=== PATIENT | male | born 1990 | race Caucasian/White ===

== ENCOUNTER 2019-02-22 03:04 | Emergency (ER) | payer BC, OTHER ==
[2019-02-22] MEDS ORDERED: diphenhydrAMINE 25 MG Cap PO ONE (03:30)
[2019-02-22] MEDS ORDERED: methylPREDNISolone Sodium Succinate 125 MG/2 ML SDV IM ONE (03:30)
--- NOTE | 2019-02-22 03:36 | EDM.PDOC ---
ED HPI GENERAL MEDICAL PROBLEM - General Chief Complaint: Bite:Animal, Insect Stated Complaint: bug bite Time Seen by Provider: 02/22/19 03:25 Source of Information: Reports: Patient History Limitations: Reports: No Limitations - History of Present Illness INITIAL COMMENTS - FREE TEXT/NARRATIVE: Patient noticed some irritation and itching of left hand starting around 10pm as he prepared to go to work at [employer]. Thought initially maybe mosquito bite- related. Now wonders if maybe spider bite. Points to several small areas of mild pinpoint erythema that are more pruritic where he feels he may have been bit. 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 He then noticed that the left hand started to swell and itch more. Currently is less able to make a tight fist due to general mild puffiness of the hand, and cannot put welding gloves back on. No systemic symptoms like shortness of breath, throat swelling or wheezing. Feels well otherwise. Reacts strongly to horse flies too whose bites cause swelling. Did not feel a bite at the time this all started and this is why he wonders if it was a spider. Left Hand Pain Score (Numeric/FACES): 8 - Related Data Allergies Allergy/AdvReac Type Severity Reaction Status Date / Time Penicillins Allergy Hives Verified 06/27/14 16:52 Past Medical History - Past Health History Medical/Surgical History: Denies Medical/Surgical History Social & Family History - Tobacco Use Years of Tobacco use: 12 Packs/Tins Daily: 0.5 - Caffeine Use Caffeine Use: Reports: Soda - Recreational Drug Use Recreational Drug Use: No - Living Situation & Occupation Living situation: Reports: with Significant Other Occupation: Employed ED ROS GENERAL - Review of Systems Review Of Systems: See Below Constitutional: Reports: No Symptoms HEENT: Reports: No Symptoms. Denies: Rhinitis, Throat Swelling, Vision Change Respiratory: Reports: No Symptoms. Denies: Shortness of Breath, Wheezing Cardiovascular: Reports: No Symptoms GI/Abdominal: Reports: No Symptoms : Reports: No Symptoms Musculoskeletal: Reports: Hand Pain (left hand feels a bit achy), Muscle Stiffness (left hand). Denies: Joint Swelling Skin: Reports: Other (small red areas on left hand, wrist) Neurological: Reports: No Symptoms Psychiatric: Reports: No Symptoms Hematologic/Lymphatic: Reports: No Symptoms ED EXAM, ANIMAL BITE - Physical Exam Exam: See Below Exam Limited By: No Limitations General Appearance: Alert, WD/WN, No Apparent Distress Eye Exam: Bilateral Eye: EOMI, Normal Inspection Nose: No: Nasal Deformity, Nasal Swelling Throat/Mouth: Normal Lips, Normal Voice, No Airway Compromise Head: Atraumatic, Normocephalic Neck: Supple, Non-Tender, Full Range of Motion Respiratory/Chest: No Respiratory Distress, Lungs Clear Cardiovascular: Regular Rate, Rhythm Peripheral Pulses: 2+: Radial (L), Radial (R) GI/Abdominal: Soft (Male) Exam: Deferred Rectal (Males) Exam: Deferred Back Exam: No: Muscle Spasm Extremities: Normal Capillary Refill, Other (Left hand is mildly diffusely swollen. Swelling involves fingers and extends approx 5 inches proximally from wrist. No skin color change other than several scattered very small areas of redness where patient feels he could have been bit that area that are pruritic. Able to flex and extend fingers but cannot make tight fist due to the feeling of stiffness. ). No: Increased Warmth, Mottled, Pallor Neurological: Alert, Oriented, Normal Cognition, Normal Gait Psychiatric: Normal Affect, Normal Mood Skin Exam: Warm/Dry Course - Vital Signs Last Recorded V/S: Last Vital Signs Temp 36.5 C 02/22/19 03:11 Pulse 97 02/22/19 03:11 Resp 14 02/22/19 03:11 BP 142/67 H 02/22/19 03:11 Pulse Ox 100 02/22/19 03:11 - Orders/Labs/Meds Orders: Active Orders 24 hr Category Date Time Status diphenhydrAMINE [Benadryl] Med 02/22/19 03:30 Once 50 mg PO ONETIME ONE methylPREDNISolone Sod Succ [Solu-MEDROL] Med 02/22/19 03:30 Once 125 mg IM ONETIME ONE - Re-Assessments/Exams Free Text/Narrative Re-Assessment/Exam: 02/22/19 03:39 Suspect reaction to insect bite given pruritic complaint, history of reacting to bugs in past, and exam. Plan at this time is to give Solumedrol and Benadryl. Patient will be sent home. To observe for changes. If no improvement is noted from the meds, or if he has worsening swelling, he is to follow up at the ER or the clinic later today. Departure - Departure Time of Disposition: 03:43 Disposition: Home, Self-Care 01 Condition: Good Clinical Impression: Localized swelling on left hand Insect bite Qualifiers: Encounter type: initial encounter Site of insect bite: hand Laterality: left Qualified Code(s): S60.562A - Insect bite (nonvenomous) of left hand, initial encounter; W57.XXXA - Bitten or stung by nonvenomous insect and other nonvenomous arthropods, initial encounter - Discharge Information Instructions: Insect Bite, Adult, [id number] Referrals: Jesus Manuel Nelson PA [Primary Care Provider] - Additional Instructions: Continue Benadryl 1-2 tabs every 6 hours to help with itching/swelling. If no improvement is noted by this afternoon, or if you have worsening symptoms, return for recheck at ER or clinic later today. If things improve, OK to return to work next shift. - My Orders Last 24 Hours: My Active Orders 02/22/19 03:30 diphenhydrAMINE [Benadryl] 50 mg PO ONETIME ONE methylPREDNISolone Sod Succ [Solu-MEDROL] 125 mg IM ONETIME ONE - Assessment/Plan Last 24 Hours: My Active Orders 02/22/19 03:30 diphenhydrAMINE [Benadryl] 50 mg PO ONETIME ONE methylPREDNISolone Sod Succ [Solu-MEDROL] 125 mg IM ONETIME ONE
== END 2019-02-22 04:00 | disposition home or self-care (01) ==
LOC: LL.ED 03:04
DX: S60.562A Insect bite (nonvenomous) of left hand, initial encounter (principal); Z88.0 Allergy status to penicillin; W57.XXXA Bitten or stung by nonvenomous insect and other nonvenomous arthropods, initial encounter
CPT/HCPCS: 96372; 99281; A9270; J2930

== ENCOUNTER 2019-04-21 07:04 | Day surgery (SDC) | payer BC ==
[~2019-04-21 07:04] MED LIST: Sodium Chloride 0.9% 10 ML Syringe FLUSH PRN
[2019-04-21] MEDS ORDERED: fentaNYL 250 MCG/5 ML SDV ONE ×2 (07:31→08:14)
[2019-04-21] MEDS ORDERED: Midazolam 1 MG/ML 2 ML SDV ONE ×2 (07:31→08:14)
[2019-04-21] MEDS ORDERED: Propofol 200 MG/20 ML SDV ONE ×2 (07:32→08:14)
[2019-04-21] MEDS: Lactated Ringers 1,000 ML IV SCH ×2 (07:35→09:24)
[2019-04-21] MEDS ORDERED: Albuterol/Ipratropium 3.0-0.5 MG/3 ML Neb Soln NEB ONE (07:47)
[2019-04-21] MEDS ORDERED: Succinylcholine 200 MG/10 ML MDV ONE (08:14)
[2019-04-21] MEDS ORDERED: Glycopyrrolate 0.2 MG/ML SDV ONE (08:14)
[2019-04-21] MEDS ORDERED: Neostigmine Methylsulfate 10 MG/10 ML MDV ONE (08:14)
[2019-04-21] MEDS ORDERED: fentaNYL 100 MCG/2 ML SDV ONE ×2 (08:14→08:37)
[2019-04-21] MEDS ORDERED: Rocuronium 100 MG/10 ML MDV ONE (08:14)
--- NOTE | 2019-04-21 09:08 | PCM.HPR ---
H & P Addendum review - H & P Addendum Review Date of Original H & P: 04/05/19 Date Reviewed: 04/21/19 Time Reviewed: 08:05 Patient was Examined: No Changes
--- NOTE | 2019-04-21 09:09 | PCM.OPNOTE ---
- General Post-Op/Procedure Note Date of Surgery/Procedure: 04/21/19 Operative Procedure(s): Tonsillectomy Pre Op Diagnosis: Chronic Tonsillitis Post-Op Diagnosis: Same Anesthesia Technique: General ET Tube Primary Surgeon: Truong Mcdaniel Anesthesia Provider: Ava HOLT in mLs: 3 Complications: None Condition: Good
--- NOTE | 2019-04-21 14:17 | OR ---
Date of Procedure: 04/21/2019 PREOPERATIVE DIAGNOSIS: Chronic tonsillitis. POSTOPERATIVE DIAGNOSIS: Chronic tonsillitis. PROCEDURE: Tonsillectomy. ANESTHESIA: General. DESCRIPTION OF PROCEDURE: The patient was brought to the operating room where general endotracheal anesthesia was administered. Oral gag retractor was placed and the oropharynx inspected. A dental mirror was used to inspect the nasopharynx, which was normal, and no adenoid tissue was present. Both tonsils were moderately enlarged, cryptic, and chronically inflamed. The right tonsil was grasped and retracted towards the midline. Electrocautery was used to dissect along its muscular plane with some difficulty because of fibrosis at the plane between the muscle and tonsil. There was some minimal oozing that was easily controlled with electrocautery. Once the tonsil was removed, the surgical site was inspected and hemostasis assured. The left tonsil was then removed in a similar fashion with the same type of findings indicating chronic tonsillitis. Both surgical sites were inspected for a few minutes and remained hemostatic. The retractor was partially released and hemostasis assured and retractor removed. The patient was extubated and returned to recovery in stable condition. ESTIMATED BLOOD LOSS: 3 mL. MODL GRISELDA HAN MD /[id number]
== END 2019-04-21 10:35 | disposition home or self-care (01) ==
LOC: LL.SDS 07:04
PROVIDERS: ATTEND Surgery
DX: J03.91 Acute recurrent tonsillitis, unspecified (principal); J35.01 Chronic tonsillitis; F17.210 Nicotine dependence, cigarettes, uncomplicated; Z88.0 Allergy status to penicillin; Z79.51 Long term (current) use of inhaled steroids; Z79.899 Other long term (current) drug therapy
CPT/HCPCS: 42826; J0330; J2250; J2704; J2710; J3010; J3490; J7120; J7620-GY

== ENCOUNTER 2023-01-21 09:23 | Emergency (ER) | payer BC ==
[2023-01-21 10:05] LABS: BASOPHILS ABSOLUTE AUTO 0.01 K/uL (0.00-0.20); BASOPHILS PERCENT AUTO 0.2 % (0.0-2.0); EOSINOPHILS PERCENT AUTO 1.5 % (0.0-5.0); HEMATOCRIT 46.3 % (39.0-49.0); HEMOGLOBIN 16.1 g/dL (13.1-16.8); LYMPHOCYTES ABSOLUTE AUTO 2.32 K/uL (0.50-3.50); LYMPHOCYTES PERCENT AUTO 35.4 % (10.0-50.0); MEAN CORPUSCULAR HEMOGLOBIN 31.4 pg (28.2-33.3); MEAN CORPUSCULAR HGB CONC 34.8 g/dL (31.7-36.0); MEAN CORPUSCULAR VOLUME 90.3 fL (84.0-98.0); MONOCYTES ABSOLUTE AUTO 0.78 K/uL (0.00-1.00); MONOCYTES PERCENT AUTO 11.9 % (2.0-14.0); NEUTROPHILS ABSOLUTE AUTO 3.35 K/uL (1.40-7.00); PLATELET COUNT,PLT 168 K/uL (150-350); RED BLOOD CELL COUNT 5.13 M/uL (4.33-5.41); RED CELL DISTRIBUTION WIDTH 12.1 % (11.2-14.1); WHITE BLOOD CELL COUNT,WBC 6.6 K/uL (4.0-10.2)
[2023-01-21 10:27] LABS: CALCIUM IONIZED,POC 1.17 mmol/L (1.12-1.32); CREATININE,POC 0.93 mg/dL (0.51-1.19); POTASSIUM,POC 3.7 mmol/L (3.5-4.5)
[2023-01-21 10:57] LABS: APPEARANCE,URINE CLEAR; BILIRUBIN,URINE NEGATIVE (NEGATIVE); COLOR,URINE YELLOW; GLUCOSE,URINE NEGATIVE (NEGATIVE); KETONES,URINE NEGATIVE (NEGATIVE); LEUKOCYTE ESTERASE,URINE NEGATIVE (NEGATIVE); NITRITE,URINE NEGATIVE (NEGATIVE); OCCULT BLOOD,URINE NEGATIVE (NEGATIVE); PROTEIN,URINE NEGATIVE (NEGATIVE); UROBILINOGEN,URINE 0.2 E.U./dL (0.2-1.0)
[2023-01-21 11:43] LABS: MAGNESIUM 1.7 mg/dL (1.8-2.4)
[2023-01-21 11:45] LABS: C-REACTIVE PROTEIN < 0.2 mg/dL (<=0.9)
== END 2023-01-21 11:10 | disposition home or self-care (01) ==
LOC: LL.ED 09:23
DX: R03.0 Elevated blood-pressure reading, without diagnosis of hypertension (principal); R51.9 Headache, unspecified; Z79.899 Other long term (current) drug therapy; Z88.0 Allergy status to penicillin
CPT/HCPCS: 36415; 70450; 80047; 81003; 83735; 85025; 85652; 86140; 99284

== ENCOUNTER 2024-03-19 10:15 | Emergency (ER) | payer OTHER, BC ==
[2024-03-19] MEDS ORDERED: Take Home: oxyCODONE HCl 5 MG Tab, 5 Tab Pack PO ONE (11:53)
[2024-03-19] MEDS: Take Home: oxyCODONE HCl 5 MG Tab, 5 Tab Pack PO ONE (12:04)
[2024-03-19] MEDS: Acetaminophen/oxyCODONE 325-5 MG Tab PO ONE (12:04)
== END 2024-03-19 12:05 | disposition home or self-care (01) ==
LOC: LL.ED 10:15
DX: S49.92XA Unspecified injury of left shoulder and upper arm, initial encounter (principal); S20.219A Contusion of unspecified front wall of thorax, initial encounter; I10 Essential (primary) hypertension; Z79.899 Other long term (current) drug therapy; Z88.0 Allergy status to penicillin; V48.5XXA Car driver injured in noncollision transport accident in traffic accident, initial encounter
CPT/HCPCS: 70450; 72125; 73030-LT; 99284; A9270-GY

== ENCOUNTER 2024-11-13 18:49 | Emergency (ER) | payer BC ==
[2024-11-13] MEDS: Ketorolac 30 MG/ML SDV IVPUSH ONE (19:15)
[2024-11-13] MEDS: diphenhydrAMINE 50 MG/ML SDV IVPUSH ONE (19:15)
[2024-11-13] MEDS: Sodium Chloride 0.9% 10 ML Syringe FLUSH PRN (19:17)
[2024-11-13] MEDS: Take Home: Ketorolac 10 MG Tab, 4 Tab Pack PO ONE (20:30)
== END 2024-11-13 20:34 | disposition home or self-care (01) ==
LOC: LL.ED 18:49
DX: G44.019 Episodic cluster headache, not intractable (principal); R03.0 Elevated blood-pressure reading, without diagnosis of hypertension; Z79.899 Other long term (current) drug therapy; Z88.0 Allergy status to penicillin
CPT/HCPCS: 96374; 96375; 99283-25; 99284; A9270-GY; J1200; J1885

== ENCOUNTER 2025-05-17 08:39 | Emergency (ER) | payer BC ==
[2025-05-17] MEDS ORDERED: Sodium Chloride 0.9% 10 ML Syringe FLUSH PRN (08:58)
[2025-05-17] MEDS: Ondansetron 4 MG/2 ML SDV IVPUSH ONE (09:04)
[2025-05-17 09:07] LABS: BASOPHILS ABSOLUTE AUTO 0.01 K/uL (0.00-0.20); BASOPHILS PERCENT AUTO 0.2 % (0.0-2.0); EOSINOPHILS ABSOLUTE AUTO 0.15 K/uL (0.00-0.50); EOSINOPHILS PERCENT AUTO 2.8 % (0.0-5.0); IMMATURE GRAN ABSOLUTE AUTO 0.03 10^3/uL (0.00-0.04); IMMATURE GRAN PERCENT AUTO 0.6 % (0.0-0.4); LYMPHOCYTES ABSOLUTE AUTO 2.00 K/uL (0.50-3.50); LYMPHOCYTES PERCENT AUTO 38.0 % (10.0-50.0); MONOCYTES ABSOLUTE AUTO 0.45 K/uL (0.00-1.00); MONOCYTES PERCENT AUTO 8.5 % (2.0-14.0); NEUTROPHILS ABSOLUTE AUTO 2.63 K/uL (1.40-7.00); NEUTROPHILS PERCENT AUTO 49.9 % (45.0-80.0); PLATELET COUNT,PLT 160 K/uL (150-350); RED BLOOD CELL COUNT 5.10 M/uL (4.33-5.41); RED CELL DISTRIBUTION WIDTH 11.8 % (11.2-14.1); WHITE BLOOD CELL COUNT,WBC 5.3 K/uL (4.0-10.2)
[2025-05-17 09:26] LABS: ALANINE AMINOTRANSFERASE,ALT 130 U/L (12-78); ASPARTATE AMNIOTRANSFERASE,AST 59 U/L (15-37); BILIRUBIN TOTAL 0.4 mg/dL (0.2-1.0); BLOOD UREA NITROGEN,BUN 10 mg/dL (7-18); CARBON DIOXIDE,CO2 26.7 mmol/L (21.0-32.0); CHLORIDE,CL 105 mmol/L (98-107); CREATININE 1.05 mg/dL (0.51-1.17); GLUCOSE RANDOM 172 mg/dL (70-99); POTASSIUM,K 3.8 mmol/L (3.5-5.1); PROTEIN TOTAL,TP 7.0 g/dL (6.4-8.2); SODIUM,NA 143 mmol/L (136-145)
[2025-05-17 09:27] LABS: ESTIMATED GFR 94 mL/min (>=60)
[2025-05-17 09:33] LABS: INR 1.0 (0.9-1.1); PTT,PARTIAL THROMBOPLSTIN TIME 25.4 SEC (23.8-34.4)
== END 2025-05-17 10:30 | disposition home or self-care (01) ==
LOC: LL.ED 08:39
DX: R03.0 Elevated blood-pressure reading, without diagnosis of hypertension (principal); Z88.0 Allergy status to penicillin; Z91.0110 Allergy to milk products, unspecified
CPT/HCPCS: 36415; 71045; 80053; 83690; 83735; 84484; 85025; 85610; 85730; 93005; 96361; 96374; 99284; 99285-25; A9270-GY; J2405; J7030